=== PATIENT | male | born 1950 | race Caucasian/White ===

== ENCOUNTER 2020-10-18 14:40 | Observation (INO) | payer MEDICARE ==
[~2020-10-18] VITALS: Ht 177.8 cm; Wt 115.7 kg
[~2020-10-18 14:40] MED LIST: CYCLOBENZAPRINE5 MG PO
[2020-10-18 16:39] LABS: HEMOGLOBIN 11.9 gm/dl (14.0-17.5); RED BLOOD COUNT 4.34 M/UL (4.20-5.50); WHITE BLOOD COUNT 5.9 K/UL (4.5-11.0)
[2020-10-18 17:09] LABS: BUN/CREATININE RATIO 9 (0-10)
[2020-10-19 02:56] LABS: HEMOGLOBIN 13.4 gm/dl (14.0-17.5); WHITE BLOOD COUNT 6.2 K/UL (4.5-11.0)
[2020-10-19 03:01] LABS: RED BLOOD COUNT 4.88 M/UL (4.20-5.50)
[2020-10-19] MEDS ORDERED: ABILIFY10 MG PO (03:27)
[2020-10-19] MEDS ORDERED: PARLODEL2.5 MG PO (03:27)
[2020-10-19] MEDS ORDERED: KLONOPIN TAB 00.5 MG PO (03:28)
[2020-10-19] MEDS ORDERED: METOPROLOL SUCC25 MG PO (03:30)
[2020-10-19] MEDS ORDERED: ISOSORBIDE MONO30 MG PO (03:31)
[2020-10-19] MEDS ORDERED: PAXIL CR37.5 MG PO (03:31)
[2020-10-19] MEDS ORDERED: PROCARDIA XL30 MG PO (03:32)
[2020-10-19] MEDS ORDERED: PLAVIX75 MG PO (03:33)
[2020-10-19] MEDS ORDERED: LAMICTAL150 MG PO (03:33)
[2020-10-19] MEDS ORDERED: PROTONIX40 MG PO (03:33)
[2020-10-19] MEDS ORDERED: LEVOTHYROXINE50 MC1 PO (03:34)
[2020-10-19] MEDS ORDERED: PRAVASTATIN SOD40 MG PO (03:35)
[2020-10-19] MEDS ORDERED: TIZANIDINE HCL4 M1 PO (03:36)
[2020-10-19] MEDS ORDERED: SUCRALFATE1 GM PO (03:36)
[2020-10-19] MEDS ORDERED: FLOMAX 0.4 MG0.4 MG PO (03:37)
[2020-10-19] MEDS ORDERED: ARICEPT10 MG PO (03:37)
[2020-10-19] MEDS ORDERED: FINASTERIDE5 MG PO (03:38)
[2020-10-19] MEDS ORDERED: OXYCODON-ACETA1 EAC1 PO (03:42)
[2020-10-19] MEDS ORDERED: VENTOLIN HFA 66.7 GM INH (03:48)
[2020-10-20 05:12] LABS: RED BLOOD COUNT 4.93 M/UL (4.20-5.50); WHITE BLOOD COUNT 6.8 K/UL (4.5-11.0)
--- NOTE | 2020-10-20 19:57 | NUR ---
CALLED AND TO GIVE REPORT AND VERIFIED THE ADDRESS FOR THE PT TO BE [address] [place] [address], [place] [address] FOR HOME HEALTH AFTER PT WAS DISCHARGED FROM THE HOSPITAL. [facility] IS SAYING THAT THE PT IS NOT IN THE SYSTEM AND THE REFERRAL MAY NOT BE MADE. [facility] WILL BE CALLING TOMORROW TO TOUCH BASE AND MAKE SURE THE PT IS IN THE SYSTEM FOR HOME HEALTH. CALLED AND LEFT A MESSAGE WITH RAJEEV, CASE MANAGEMENT TO LET HER KNOW.
[2020-10-22 21:08] LABS: VITAMIN E(ALPHA TOCOPHEROL) 5.9 mg/L (9.0-29.0); VITAMIN E(GAMMA TOCOPHEROL) 0.5 mg/L (0.5-4.9)
== END 2020-10-20 18:46 | disposition home or self-care (01) ==
LOC: ER1 14:40 → MED SURG 4 22:00 → CDU 22:00 → MED SURG 4 22:00
PROVIDERS: Emergency Medicine; Nurse Practitioner Family; Physician Assistant Medical; ADMIT Internal Medicine
DX: R29.6 Repeated falls (principal); E87.6 Hypokalemia; R53.1 Weakness; G20 Parkinson's disease; F02.80 Dementia in other diseases classified elsewhere, unspecified severity, without behavioral disturbance, psychotic disturbance, mood disturbance, and anxiety; J44.9 Chronic obstructive pulmonary disease, unspecified; N17.9 Acute kidney failure, unspecified; I12.9 Hypertensive chronic kidney disease with stage 1 through stage 4 chronic kidney disease, or unspecified chronic kidney disease; N18.30 Chronic kidney disease, stage 3 unspecified; Z20.822 Contact with and (suspected) exposure to COVID-19; N40.0 Benign prostatic hyperplasia without lower urinary tract symptoms; E03.9 Hypothyroidism, unspecified; K21.9 Gastro-esophageal reflux disease without esophagitis; D63.1 Anemia in chronic kidney disease; R31.29 Other microscopic hematuria; R91.8 Other nonspecific abnormal finding of lung field; Z88.1 Allergy status to other antibiotic agents; Z85.528 Personal history of other malignant neoplasm of kidney; Z90.5 Acquired absence of kidney; Z90.49 Acquired absence of other specified parts of digestive tract
CPT/HCPCS: 0240U; 36415; 70450; 70551; 71045; 72125; 80048; 80053; 80175; 81001; 82550; 82553; 82607; 82746; 83605; 83690; 83735; 83874; 83880; 84439; 84443; 84446; 84484; 85025; 85027; 87040; 94664; 97161; 97166; 99285; G0378; J0456; J0696; J1940; J7030